=== PATIENT | male | born 1950 | race Caucasian/White ===

== ENCOUNTER 2021-01-06 17:54 | Inpatient (IN) | payer MEDICARE, OTHER ==
[~2021-01-06] VITALS: Ht 172.7 cm; Wt 98.7 kg
[2021-01-06 19:15] LABS: BASO % 0.6 % (0.0-2.0); EOS # 0.2 K/mm3 (0.0-0.7); EOS % 4.2 % (0-4.0); GRAN # 3.2 K/mm3 (1.4-6.5); GRAN % 58.5 % (42.2-75.2); HEMATOCRIT 44.3 % (42.0-52.0); HEMOGLOBIN 14.8 g/dl (13.5-18.0); LYMPH # 1.4 K/mm3 (1.2-3.4); LYMPH % 25.3 % (20.0-51.0); MEAN CELL VOLUME 91 fl (80.0-100.0); MEAN CORPUSCULAR HEMOGLOBIN 30 pg (27.0-31.0); MEAN CORPUSCULAR HGB CONC 33 g/dl (33.0-37.0); MEAN PLATELET VOLUME 11.1 fl (7.4-10.4); MONO # 0.6 K/mm3 (0.1-0.6); PLATELET COUNT 133 K/mm3 (130-400); RED BLOOD COUNT 4.87 M/mm3 (4.20-5.60)
[2021-01-06 19:42] LABS: ALBUMIN 3.9 gm/dL (3.4-4.8); BILIRUBIN,TOTAL 0.6 mg/dL (0.2-1.2); CALCIUM 9.1 mg/dL (8.4-10.2); CREATININE, serum 1.44 mg/dL (0.72-1.25); POTASSIUM 3.9 mmol/L (3.5-4.5); TOTAL PROTEIN 7.2 gm/dL (6.2-8.1)
[2021-01-06 21:16] LABS: COLLECTION METHOD CLEAN CATCH
[2021-01-06 21:40] LABS: MUCOUS Present /lpf; PH 6 (5-8); SQUAMOUS EPITHELIAL None Seen /hpf; URINE APPEARANCE Clear; URINE BACTERIA None Seen /hpf; URINE BILIRUBIN Negative (NEGATIVE); URINE BLOOD 2+ (NEGATIVE); URINE COLOR Yellow; URINE GLUCOSE Negative (NEGATIVE); URINE KETONE Negative (NEGATIVE); URINE LEUKOCYTE ESTERASE Negative (NEGATIVE); URINE NITRATE Negative (NEGATIVE); URINE PROTEIN(semi-quant) Negative (NEGATIVE); URINE RBC >50 /hpf; URINE UROBILINOGEN Negative (NEGATIVE)
[2021-01-06 23:50] VITALS: BP 139/104; PULSE 94; TEMP 98
[2021-01-07] VITALS (7 sets, daily range): BP systolic 148–179; BP diastolic 82–102; PULSE 59–103; TEMP 98–98.8
--- NOTE | 2021-01-07 00:04 | NUR ---
Pt. arrived to the floor via stretcher. Pt. is A&OX3, assessment complete. Pt. is a poor historian, and does not know his home med but reports that he has not taken any medication for "a long time". Pt. does not know when he last took any of his medications. Pt. reports that he has not bathed in 2 years do to fear of falling in the shower. He also reports that he is very unsteady and falls frequently at home. Bed alarm on. Pt. denies pain or other needs, call light within reach.
[2021-01-07] MEDS ORDERED: PRINIVIL20 MG PO (00:13)
[2021-01-07 06:46] LABS: BASO % 0.5 % (0.0-2.0); EOS # 0.2 K/mm3 (0.0-0.7); EOS % 3.9 % (0-4.0); GRAN # 3.9 K/mm3 (1.4-6.5); GRAN % 65.8 % (42.2-75.2); HEMATOCRIT 45.8 % (42.0-52.0); HEMOGLOBIN 15.3 g/dl (13.5-18.0); LYMPH # 1.2 K/mm3 (1.2-3.4); LYMPH % 19.8 % (20.0-51.0); MEAN CELL VOLUME 91 fl (80.0-100.0); MEAN CORPUSCULAR HEMOGLOBIN 30 pg (27.0-31.0); MEAN CORPUSCULAR HGB CONC 33 g/dl (33.0-37.0); MONO # 0.6 K/mm3 (0.1-0.6); MONO % 9.7 % (1.7-9.3); PLATELET COUNT 142 K/mm3 (130-400); RED BLOOD COUNT 5.04 M/mm3 (4.20-5.60); REDCELL DISTRIBUTION WIDTH-CV 14.2 % (11.5-14.5)
[2021-01-07 07:11] LABS: CALCIUM 9.2 mg/dL (8.4-10.2); CREATININE, serum 1.43 mg/dL (0.72-1.25); POTASSIUM 3.8 mmol/L (3.5-4.5)
--- NOTE | 2021-01-07 07:45 | NUR ---
Shift assessment done. c/o pain w/ catheter when moving right leg. Nick catheterintact, draining clear orange urinary output. Pitting edema and weakness in both legs. Anxious about MRI later today. Telemetry in place, INT intact without signs of swelling or redness.
--- NOTE | 2021-01-07 08:00 | NUR ---
PT IS ALERT AND ORIENTED X3. POOR HISTORIAN BUT IS NOT CONFUSED. PT SEEMS ANXIOUS ABOUT MRI LATER TODAY. STATES "I JUST DO NOT KNOW IF I HAVE METAL ANYWHERE AND IF I DO I'LL FIND OUT THE HARD WAY." PT HAS HISORY OF PSORIASIS THAT HAS NOT BEEN TREATED FOR YEARS AND IS NOTABLY UNCARED FOR. PT IS DEAF IN LEFT EAR AND HAS A HEARING AID IN THE RIGHT. PT HAS A HISTORY OF HYDROCEPHALUS AND STENT PLACEMENT. SHIFT ASSESSMENT COMPLETE AND MORNING MEDICATIONS GIVEN. PT HAS NO OTHER NEEDS AT THIS TIME. CALL LIGHT WITHIN REACH.
--- NOTE | 2021-01-07 10:13 | NUR ---
STUDENTS AND NURSE GAVE PT A BED BATH AND APPLIED LOTION TO BODY. THERE WERE LARGE FLAKES OF SKIN ALL OVER THE PTS BODY. HE REPORTS HE HAS NOT SHOWERED IN TWO YEARS AND STATES HE HAS NOT TAKEN HIS MEDICATIONS FOR PSORISIS FOR SOME TIME NOW.
--- NOTE | 2021-01-07 10:56 | NUR ---
LEANA met with the patient to discuss discharge plan. The patient lives in a house in [place] with his brother, Abebe (ph#[phone]). He reports that he has been able to go to the restroom on his own, but that he gets too tired and cannot stand up for long, so he has not bathed is two years. He states that he has not had any home health services. The patient could not recall his PCP's name. He receives his medications at [facility] in . Per the patient's H&P, the patient has not been taking his meds. LEANA addressed this with the patient. The patient reports that he was not sure where his meds were, so that is why he did not take them. The patient does not have a DPOA-HC, but the patient was interested in completing one while here. LEANA presented the form. The patient verbalized that he does not have any other family and that he would want to designate his brother, Abebe. LEANA and BRAIN Purcell, witnessed the patient's signature. LEANA provied the patient with the original and some copies. LEANA placed a copy in the patient's chart. PT/OT are recommending SNF. LEANA discussed this with the patient. The patient is interested in SNF. He reports that he would prefer the facility in [place], [facility]. LEANA contacted the patient's brother, Abebe, to review the above and discharge plan. Abebe reports that he had set up the patient's meds, but that he was not taking the. He is also agreeable to SNF and would prefer [facility]. He was open for LEANA to go ahead and send referrals to the [place] facilities, in the event [facility] cannot take. He reports that he only has the home phone, but that he can also be reached by email: [email or web address]. LEANA contacted and faxed a referral to [facility], [facility], [facility], and [facility]. Awaiting screens. *Discharge plan: SNF*
--- NOTE | 2021-01-07 12:19 | NUR ---
First visit from the commercial stripper. No needs right now.
--- NOTE | 2021-01-07 15:11 | NUR ---
PATIENT GOING DOWN FOR MRI
--- NOTE | 2021-01-07 16:08 | NUR ---
Bambi, at [facility], reports that they should be good to accept the patient upon discharge.
--- NOTE | 2021-01-07 20:00 | NUR ---
PATIENT IS ALERT AND ORIENTED X4 BUT WITH SOME CONFUSION. PATIENT HAS NEURO CHECKS Q4. PATIENT IS A POOR HISTORIAN AND NONCOMPLIANT WITH TREATMENT. PATIENT HAS HYDROCEPHALAS AND FLAKING SKIN ANS SCAB TO HEAD. PATIENT HAS SEVERE PSORASIS ALL OVER BODY. PATIENT FEET AND FLAKY AND HE HAS BILATERAL LOWER EXTREMITIY EDEMA. PATIENT HAS CROOKS WITH YELLOW AND SLIGHTLY CLOUDY OUTPUT. 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 PATIENT HAS IV TO RIGHT AC. PATIENT IS VERY WEAK WITH VERY UNSTEADY GAIT. PATIENT ON FALL PRECAUTIONS. DR. LEIGH HAS RECOMMENDED A HIGHER LEVEL OF CARE AND APPOINTMENT WITH NEUROSURGEON FOR FURTHER EVALUATION. PATIENT ON GENERAL DIET. PATIENT DENIES PAIN OR FURTHER NEEDS AT THIS TIME. CALL LIGHT WITHIN REACH. HEAD TO TOE ASSESSMENT COMPLETE.
[2021-01-08] VITALS (8 sets, daily range): BP systolic 161–192; BP diastolic 80–99; PULSE 59–72; TEMP 97.8–98.7
--- NOTE | 2021-01-08 01:03 | NUR ---
PATIENT WAS HELPED TO BRUSH TEETH
--- NOTE | 2021-01-08 04:30 | NUR ---
HYDRALAZINE GIVEN PER ODERS DUE TO HIGH BLOOD PRESSURE
--- NOTE | 2021-01-08 06:17 | NUR ---
PATIENT DID WELL THROUGHOUGHT NIGHT. SLEPT ON AND OFF THROUGH NIGHT. CONTINUES TO BE SLIGHTLY CONFUSED. NO FURTHER NEEDS AT THIS TIME. WILL REPORT TO DAYSHIFT.
--- NOTE | 2021-01-08 07:15 | NUR ---
Shift assessment completed. Completed neuro check with passing of all lew. C/o pain in right leg when fullt stretched out but fades quickly. Also C/O pain at rodriguez catheter site, with peachy clear urinary ouput. Assessed catheter and moved position to help eleviate pain/fullness felling.
--- NOTE | 2021-01-08 12:39 | NUR ---
SW attended clinical rounds. The patient is to transfer to [facility] today, 01/08, for a neurosurgeon. SW updated the [facility]dc facilities.
--- NOTE | 2021-01-08 13:13 | NUR ---
Supervisor Ride Assembly, Ornamental Machine Operator and RN, confirmed via phone call pt has been accepted by MD [facility] at [facility], although awaiting open bed; SV Ornamental Machine Operator has [facility] House Supervisors direct line; will update once available. Transfer paperwork initiated and on pts hard chart.
--- NOTE | 2021-01-08 13:41 | NUR ---
Initial visit; Patient appears lonely and needed a listener. Technical Spec listened, offered God's blessings and will keep patient in her prayers.
--- NOTE | 2021-01-08 18:50 | NUR ---
WAITING FOR BED AT [facility] FOR NEUROSURGERY EVAL. PT IRRITABLE AT TIMES WITH HIS ABLILITY TO CARE FOR SELF. CONT IVF. CROOKS WITH CLEAR, HEATHER/PINK TINGED OUTPUT. BROTHER UPDATED WITH PLAN OF CARE.
--- NOTE | 2021-01-08 20:30 | NUR ---
Pt. laying in bed with eyes closed, respirations equal and unlabored. Pt. is A&OX3, but seems a bit forgetful. Nick catheter to DD, red tinged urine noted. Pt. denies amy or other needs, call light within reach.
[2021-01-09 03:33] VITALS: BP 225/96; PULSE 80; TEMP 98.6
[2021-01-09 03:47] VITALS: BP 190/88
[2021-01-09 07:30] VITALS: BP 182/90; PULSE 72; TEMP 98.3
--- NOTE | 2021-01-09 10:54 | NUR ---
SW made an APS report. Due to patient unable to bathe in two years and not taking meds. APS report Intake ID#[id number].
[2021-01-09 11:33] VITALS: BP 140/75; PULSE 72; TEMP 97.9
--- NOTE | 2021-01-09 13:52 | NUR ---
REPORT CALLED AND GIVEN TO KATHERYN DE LA PAZ AT [place] [id number] [facility] AT THIS TIME. QUESTIONS AND ANSWERED.
--- NOTE | 2021-01-09 14:23 | NUR ---
PT TRANSFERED TO [facility] VIA [facility] AT 1418 ON STABLE CONDITION. PT ON RA, DENIES PAIN. ALL PERSONAL BELONGINGS SEND WITH PT REPORT CALLED TO KATHERYN DE LA PAZ AT [facility]
== END 2021-01-09 14:18 | disposition short-term general hospital (02) | DRG 552 ==
LOC: COL.ER 17:54 → SURG 20:56
PROVIDERS: Student in an Organized Health Care Education/Training Program; ADMIT Internal Medicine
DX: M48.02 Spinal stenosis, cervical region (principal); G95.20 Unspecified cord compression; N17.9 Acute kidney failure, unspecified; I16.0 Hypertensive urgency; L40.9 Psoriasis, unspecified; I12.9 Hypertensive chronic kidney disease with stage 1 through stage 4 chronic kidney disease, or unspecified chronic kidney disease; N18.9 Chronic kidney disease, unspecified; T46.6X6A Underdosing of antihyperlipidemic and antiarteriosclerotic drugs, initial encounter; Z91.138 Patient's unintentional underdosing of medication regimen for other reason; Z85.820 Personal history of malignant melanoma of skin
CPT/HCPCS: 99223-AI; 99233-AI; 99239; A4314; J0360; J1644; J1940; J7030